=== PATIENT | female | born 1980 | race Caucasian/White ===

== ENCOUNTER 2016-06-22 20:06 | Emergency (ER) | payer MEDICAID, OTHER ==
[~2016-06-22] VITALS: Ht 152.4 cm; Wt 60.8 kg
[2016-06-22] MEDS ORDERED: NORG1TAB22 PO (20:25)
--- NOTE | 2016-06-22 20:25 | NUR ---
Received patient from triage for RUQ pain, no n/v/d, pain started 10 days ago, mentioned that she also bumped it in the laundry area. Pain /10 burning inside however 5/10 extrenal side. Last time have eaten 2 hours ago, did not aggravated with food. BM this am. No problem with BM nor urination. The only surgical hx was ceasarian section 6 yrs ago. Addendum: 06/22/16 at 2043 by CDELAFUENT LUQ pain and not RUQ.
--- NOTE | 2016-06-22 21:00 | NUR ---
Patient discharged to home in stable conditon. Written and verbal after care instructions given. Patient verbalizes understanding of instructions.
[2016-06-22 21:05] LABS: *BILIRUBIN,URIN NEGATIVE (NEGATIVE); *BLOOD, URINE 1+ (NEGATIVE); *CLARITY,URINE CLEAR (CLEAR); *COLOR,URINE YELLOW (YELLOW); *KETONES,URINE NEGATIVE (NEGATIVE); *PROTEIN,URINE NEGATIVE (NEGATIVE); *UROBILINOGEN,URINE 0.2 E.U./dl (NORMAL); LEUKOCYTE ESTERASE ,URINE NEGATIVE (NEGATIVE); NITRITE, URINE NEGATIVE (NEGATIVE); UGLUCOSE NEGATIVE (NEGATIVE)
[2016-06-22 21:07] VITALS: BP 111/78
[2016-06-22 21:11] LABS: *URINE HCG, QUAL NEGATIVE (NEGATIVE)
[2016-06-22 21:22] LABS: BACTERIA,URINE FEW /HPF (NONE SEEN); SQUAMOUS EPITHELIAL CELL,UR MODERATE /HPF (NONE SEEN); WBC,URINE 0-3 /HPF (0-3)
== END 2016-06-22 21:00 | disposition home or self-care (01) ==
LOC: ER 20:06
DX: I88.9 Nonspecific lymphadenitis, unspecified (principal); G43.909 Migraine, unspecified, not intractable, without status migrainosus
CPT/HCPCS: 81001; 84703; 99283; A4663

== ENCOUNTER 2016-12-19 09:20 | Emergency (ER) | payer OTHER ==
[~2016-12-19] VITALS: Ht 152.4 cm; Wt 59.0 kg
[~2016-12-19 09:20] MED LIST: NORG1TAB22 PO
--- NOTE | 2016-12-19 10:27 | NUR ---
Patient discharged to home in stable conditon. Written and verbal after care instructions given. Patient verbalizes understanding of instructions.pt face has cleared, pt deneis any sob, difficulty swallowing. pt walks in steady gait. pt with
[2016-12-19 10:43] VITALS: BP 118/71
== END 2016-12-19 10:49 | disposition home or self-care (01) ==
LOC: ER 09:20
DX: T78.40XA Allergy, unspecified, initial encounter (principal); X58.XXXA Exposure to other specified factors, initial encounter
CPT/HCPCS: A4663; J7512; Q0163